=== PATIENT | female | born 1935 | race Caucasian/White ===

== ENCOUNTER 2016-07-07 18:08 | Emergency (ER) | payer MEDICARE ==
[~2016-07-07] VITALS: Ht 165.1 cm; Wt 93.4 kg
[2016-07-07 19:21] LABS: BLOOD UREA NITROGEN 13 mg/dL (7-18)
[2016-07-07 19:45] LABS: DIFF TOTAL CELLS COUNTED 100 CELL DIFF
[2016-07-07 19:49] LABS: VERIFY COUNTS? YES
[2016-07-07] MEDS ORDERED: PHENYLEPHRINE NASAL 1%, 15ML SPRAY ONE (20:43)
== END 2016-07-07 20:50 | disposition home or self-care (01) ==
LOC: ED 20:30
DX: R04.0 Epistaxis (principal); D69.59 Other secondary thrombocytopenia
CPT/HCPCS: 36415; 80048; 82040; 85025; 85610; 99284